=== PATIENT | female | born 1940 | race Caucasian/White ===

== ENCOUNTER → 2018-09-11 | Outpatient (CLI) | payer OTHER ==
--- NOTE | 2018-09-11 15:48 | PCVCIMAG ---
EXAM: Right SUPERFICIAL VENOUS DUPLEX INDICATION: Leg pain and swelling. Bleeding varicosity anterior right lower leg. FINDINGS: Right leg: No thrombus in the common femoral, main femoral, or popliteal veins. These veins are compressible. Right Great Saphenous Vein: At the saphenofemoral junction the diameter is 6.0 mm, in the mid thigh it is 6.3 mm, and in the calf it is 2.0 mm. There is significant venous insufficiency/reflux throughout. Venous insufficiency/reflux duration is 2.3 seconds. Right Small Saphenous Vein: At the saphenopopliteal junction the diameter is 3.6 mm, and in the calf it is 5.1 mm. There is not significant venous insufficiency/reflux throughout. Venous insufficiency/reflux duration is 0.4 seconds. There is not a cranial extension present. IMPRESSION: Right Great Saphenous Vein: Significant venous insufficiency/reflux is present as noted above. Note is made the great saphenous vein becomes diminutive in size below the knee. Right Small Saphenous Vein: No significant venous insufficiency/reflux is present as noted above. LOC:OFFICE
== END | disposition home or self-care (01) ==
LOC: PCVCIMAG 14:59
PROVIDERS: ATTEND Nuclear Medicine Nuclear Cardiology
DX: I87.2 Venous insufficiency (chronic) (peripheral) (principal); I83.012 Varicose veins of right lower extremity with ulcer of calf; L97.218 Non-pressure chronic ulcer of right calf with other specified severity; M79.89 Other specified soft tissue disorders; R58 Hemorrhage, not elsewhere classified
CPT/HCPCS: 93971

== ENCOUNTER → 2018-09-14 | Outpatient (CLI) | payer OTHER ==
[~2018-09-14] MED LIST: MIDAZOLAM HCL/PF 2 MG/2 ML VIAL. ONE; fentaNYL PF VIAL 100 MCG/2 ML VIAL ONE
== END | disposition home or self-care (01) ==
LOC: PCVCCLINIC 10:47
PROVIDERS: ATTEND Nuclear Medicine Nuclear Cardiology
DX: I87.2 Venous insufficiency (chronic) (peripheral) (principal); I83.899 Varicose veins of unspecified lower extremity with other complications; I83.93 Asymptomatic varicose veins of bilateral lower extremities; I10 Essential (primary) hypertension; E78.00 Pure hypercholesterolemia, unspecified; Z88.0 Allergy status to penicillin
CPT/HCPCS: G0463; J2250; J3010

== ENCOUNTER → 2018-09-15 | Outpatient (CLI) | payer OTHER ==
[~2018-09-15] MED LIST changes: +DIAZEPAM 10 MG TABLET. ONE; +IOHEXOL 300 MG/ML 100ML VIAL. ONE; +IV NORMAL SALINE 500ML BAG 500 ML ONE; +LIDOCAINE 1% Multi-Dose 50 ML VIAL. ONE; -MIDAZOLAM HCL/PF 2 MG/2 ML VIAL. ONE; -fentaNYL PF VIAL 100 MCG/2 ML VIAL ONE
--- NOTE | 2018-09-15 16:55 | PCVCINTER ---
EXAM: 1. INTRAVASCULAR ULTRASOUND OF THE INFERIOR VENA CAVA 2. INTRAVASCULAR ULTRASOUND OF THE RIGHT COMMON AND EXTERNAL ILIAC AND COMMON FEMORAL VEINS 3. INTRAVASCULAR ULTRASOUND OF THE LEFT COMMON AND EXTERNAL ILIAC AND COMMON FEMORAL VEINS 4. INFERIOR VENA CAVA AND BILATERAL ILIOFEMORAL VENOGRAPHY INDICATION: Iliofemoral venous obstruction. Chronic Venous Insufficiency Class 4a. Leg pain and swelling. Failed conservative therapy including medical grade compression stockings for at least 3 months. Venous hypertension chronic. Prior episodes of bleeding from anterior right lower leg prominent varicosity. PROCEDURE: Procedure and risks of IVC and ileofemoral venography and intravascular ultrasound, and venous stent placement as appropriate including bleeding, infection, venous thrombosis, stent migration/thrombosis, contrast-induced nephropathy requiring dialysis, stroke, and were discussed with the patient and consent obtained. Patient was given IV antibiotics. The patient's right neck and chest was prepped and draped in the normal sterile fashion. IV conscious sedation was used throughout the procedure with appropriate monitoring. Ultrasound was used to interrogate the neck and showed the internal jugular vein to be patent. A spot ultrasound image of the internal jugular vein was saved. Under ultrasound guidance access into the right internal jugular vein was obtained and an 8F sheath was placed to the level of the lower IVC. Catheter was placed into the lower IVC and IVC cavogram performed. Catheter was placed to the level of the right common femoral vein and right iliofemoral venogram obtained. Catheter was placed to the level of the left common femoral vein and left iliofemoral venogram was obtained. The 8 [place] intravascular ultrasound catheter was then placed to the level of the right common femoral vein and intravascular ultrasound evaluation of the right common femoral, right external iliac, and right common iliac veins was accomplished in a pull-back fashion. The 8 [place] intravascular ultrasound catheter was then placed to the level of the left common femoral vein and intravascular ultrasound evaluation of the left common femoral, left external iliac, and left common iliac veins was accomplished in a pull-back fashion. Intravascular ultrasound evaluation of the inferior vena cava was then accomplished in a pullback fashion. Sheath was removed and hemostasis obtained using manual pressure. FINDINGS: IVC INTRAVASCULAR ULTRASOUND: Normal vessel: 6.1 x 17.6 mm. Area = 105.1 sq. mm. Minimum vessel diameter: 3.3 x 15.3 mm. Area = 40.0 sq. mm. RIGHT COMMON ILIAC VEIN INTRAVASCULAR ULTRASOUND: Normal vessel: 11.4 x 16.3 mm. Area = 162.9 sq. mm. RIGHT EXTERNAL ILIAC VEIN INTRAVASCULAR ULTRASOUND: Normal vessel: 8.9 x 11.4 mm. Area = 82.7 sq. mm. Minimum vessel diameter: 2.6 x 8.4 mm. Area = 19.9 sq. mm. RIGHT COMMON FEMORAL VEIN INTRAVASCULAR ULTRASOUND: Normal vessel: 11.0 x 15.2 mm. Area = 122.6 sq. mm. LEFT COMMON ILIAC VEIN INTRAVASCULAR ULTRASOUND: Normal vessel: 7.2 x 11.0 mm. Area = 71.3 sq. mm. Minimum vessel diameter: 4.4 x 8.0 mm. Area = 27.4 sq. mm. LEFT EXTERNAL ILIAC VEIN INTRAVASCULAR ULTRASOUND: Normal vessel: 6.4 x 8.4 mm. Area = 47.0 sq. mm. Minimum vessel diameter: 4.7 x 6.0 mm. Area = 23.1 sq. mm. LEFT COMMON FEMORAL VEIN INTRAVASCULAR ULTRASOUND: Normal vessel: 10.4 x 11.8 mm. Area = 97.8 sq. mm. VENOGRAPHY: INFERIOR VENA CAVA: Extrinsic compression infrarenal vessel resulting in 62% area reduction. RIGHT COMMON ILIAC VEIN: Vessel is patent without significant stenosis, scarring, or extrinsic compression. RIGHT EXTERNAL ILIAC VEIN: Several areas of extrinsic compression throughout resulting in maximum 76% area reduction. RIGHT COMMON FEMORAL VEIN: Vessel is patent without significant stenosis, scarring, or extrinsic compression. LEFT COMMON ILIAC VEIN: Extrinsic compression proximal vessel results in 62% area reduction. LEFT EXTERNAL ILIAC VEIN: Extrinsic compression distal vessel results in 51% area reduction. LEFT COMMON FEMORAL VEIN: Vessel is patent without significant stenosis, scarring, or extrinsic compression. IMPRESSION: Moderate extrinsic compression involving the infrarenal inferior vena cava, several areas in the right external iliac vein, in the proximal left common iliac vein, and in the distal left external iliac vein. These areas were not readily amenable to stent placement and given the rather diffuse nature and the small size of the patient's veins overall no intervention was performed. LOC:[id number]
== END | disposition home or self-care (01) ==
LOC: PCVCINTER 12:08
PROVIDERS: ATTEND Nuclear Medicine Nuclear Cardiology
DX: I87.2 Venous insufficiency (chronic) (peripheral) (principal); I83.811 Varicose veins of right lower extremity with pain; I10 Essential (primary) hypertension; E78.00 Pure hypercholesterolemia, unspecified; Z88.0 Allergy status to penicillin; Z98.890 Other specified postprocedural states; Z79.899 Other long term (current) drug therapy; Z82.49 Family history of ischemic heart disease and other diseases of the circulatory system
CPT/HCPCS: 36012; 37252; 37253; 75822; 75825; 99152; 99153; C1751; C1753; C1769; C1894; J1644; J7040; Q9967

== ENCOUNTER → 2019-01-18 | Outpatient (CLI) | payer OTHER, MEDICAID ==
--- NOTE | 2019-01-18 10:26 | PCVCIMAG ---
EXAM: BILATERAL SUPERFICIAL VENOUS DUPLEX INDICATION: Leg pain and swelling. FINDINGS: Right leg: No thrombus in the common femoral, main femoral, or popliteal veins. These veins are compressible. Right Great Saphenous Vein: At the saphenofemoral junction the diameter is 8.7 mm, in the mid thigh it is 3.1 mm, and in the calf it is 3.3 mm. There is not significant venous insufficiency/reflux throughout. Venous insufficiency/reflux duration is 0 seconds. Small 4.0 mm anterior duplicated great saphenous vein with no evidence of insufficiency. Right Small Saphenous Vein: At the saphenopopliteal junction the diameter is 3.2 mm, and in the calf it is 2.4 mm. There is significant venous insufficiency/reflux throughout only in the lower calf. Venous insufficiency/reflux duration is 1.7 seconds. There is not a cranial extension present. Left leg: No thrombus in the common femoral, main femoral, or popliteal veins. These veins are compressible. Left Great Saphenous Vein: At the saphenofemoral junction the diameter is 6.8 mm, in the mid thigh it is 2.9 mm, and in the calf it is 2.1 mm. There is not significant venous insufficiency/reflux throughout. Venous insufficiency/reflux duration is 0 seconds. Left Small Saphenous Vein: At the saphenopopliteal junction the diameter is 2.2 mm, and in the calf it is 2.9 mm. There not significant venous insufficiency/reflux throughout. Venous insufficiency/reflux duration is 0 seconds. There is not a cranial extension present. IMPRESSION: Right Great Saphenous Vein: No significant venous insufficiency/reflux is present as noted above. Right Small Saphenous Vein: Significant venous insufficiency/reflux is present only in the lower calf. Note is made the vein is diminutive in size. Left Great Saphenous Vein: No significant venous insufficiency/reflux is present as noted above. Left Small Saphenous Vein: No significant venous insufficiency/reflux is present as noted above. LOC:[id number]
== END | disposition home or self-care (01) ==
LOC: PCVCIMAG 08:33
PROVIDERS: ATTEND Nuclear Medicine Nuclear Cardiology
DX: I83.93 Asymptomatic varicose veins of bilateral lower extremities (principal); I87.2 Venous insufficiency (chronic) (peripheral); I83.899 Varicose veins of unspecified lower extremity with other complications; I10 Essential (primary) hypertension; E78.00 Pure hypercholesterolemia, unspecified
CPT/HCPCS: 93970